=== PATIENT | female | born 1960 | race Caucasian/White ===

== ENCOUNTER → 2016-05-08 | Outpatient (CLI) | payer BC ==
[~2016-05-08] MED LIST: /RANI15TA PO; ALEV220C2 PO; AMOX500T PO; AMOXIL875 PO; ASPI81CH PO; ASPI81TA85 PO; ATOR1TAB19 PO; AUGM875T27 PO; AVELOX PO; AZEL0.1S; BACTRIMDS PO; CYCL10TA3 PO; DIVA125C5 PO; DOXYCYC100 PO; ESTRATEST PO; ETOD20CA PO; FLUT50SP; LYRI75CA PO; META800T82 PO; MULTCAP9 PO; PHENERGA25 PO; PREMAR1.25 PO; TRIA55SP; VAGIFEM VAGINALLY; VENTAER IN; VOLT1GEL2 TD; ZYRTEC10 PO; atrovastatin PO; augmentin PO
[2016-05-08 14:24] LABS: BASO % 0.7 % (0.0-1.0); EOS # 0.1 K/mm3 (0.0-0.50); EOS % 1.2 % (0.0-3.0); LYMPH # 3.1 K/mm3 (1.5-4.5); LYMPH % 45.1 % (24.0-44.0); MEAN CORPUSCULAR HEMOGLOBIN 29.3 pg (27.0-33.0); MEAN CORPUSCULAR HGB CONC 32.5 g/dl (32.0-36.5); MEAN CORPUSCULAR VOLUME 89.9 fl (80.0-96.0); MONO # 0.4 K/mm3 (0.0-0.8); MONO % 5.7 % (0.0-5.0); NEUTROPHILS # 3.1 K/mm3 (1.8-7.7); NEUTROPHILS % 45.6 % (36.0-66.0); RED CELL DISTRIBUTION WIDTH 12.7 % (11.5-14.5); WHITE BLOOD COUNT 6.7 K/mm3 (4.0-10.0)
[2016-05-08 14:51] LABS: IMMUNOGLOBULIN G 906 MG/DL (681-1648); IMMUNOGLOBULIN M 113 MG/DL (40-230)
[2016-05-08 15:16] LABS: IMMUNOGLOBULIN E < 3.6 IU/ML (<100)
[2016-05-12 00:06] LABS: ANTI TETANUS ANTIBODY 1.25 IU/mL (<0.10); STREP PNEUMO TYPE 12F <0.3 ug/mL (>1.3); STREP PNEUMO TYPE 18C 1.4 ug/mL (>1.3); STREP PNEUMO TYPE 19A 11.5 ug/mL (>1.3); STREP PNEUMO TYPE 19F 11.1 ug/mL (>1.3); STREP PNEUMO TYPE 23F 0.6 ug/mL (>1.3); STREP PNEUMO TYPE 6B 1.1 ug/mL (>1.3); STREP PNEUMO TYPE 7F 0.7 ug/mL (>1.3)
== END ==
LOC: M SMT 11:32
PROVIDERS: ATTEND Allergy & Immunology Allergy
DX: D84.9 Immunodeficiency, unspecified (principal)

== ENCOUNTER → 2016-06-15 | Outpatient (REF) | payer BC ==
[2016-06-15 12:18] LABS: ALBUMIN 3.7 GM/DL (3.2-5.2); ALBUMIN/GLOBULIN RATIO 1.23 (1.00-1.93); ALKALINE PHOSPHATASE 71 U/L (45-117); ALT/SGPT 53 U/L (12-78); ANION GAP 9 MEQ/L (8-16); AST/SGOT 24 U/L (15-37); BILIRUBIN,TOTAL 0.6 MG/DL (0.2-1.0); BLOOD UREA NITROGEN 14 MG/DL (7-18); CALCIUM LEVEL 8.9 MG/DL (8.5-10.1); CARBON DIOXIDE LEVEL 28 MEQ/L (21-32); CHLORIDE LEVEL 108 MEQ/L (98-107); CHOLESTEROL LEVEL 170 MG/DL (<200); GLOMERULAR FILTRATION RATE > 60.0 (>51); GLUCOSE, FASTING 88 MG/DL (70-105); POTASSIUM SERUM 4.1 MEQ/L (3.5-5.1); SODIUM LEVEL 145 MEQ/L (136-145); TOTAL PROTEIN 6.7 GM/DL (6.4-8.2); TRIGLYCERIDES LEVEL 138 MG/DL (<150)
== END ==
LOC: M SFHCCLAY 07:27
PROVIDERS: ATTEND Family Medicine
DX: E78.00 Pure hypercholesterolemia, unspecified (principal)

== ENCOUNTER → 2016-06-28 | Outpatient (REF) | payer BC | LOC: M SFHCCLAY 11:21 | PROVIDERS: ATTEND Family Medicine | DX: N39.0 Urinary tract infection, site not specified (principal) ==

== ENCOUNTER → 2016-07-31 | Outpatient (REF) | payer BC | LOC: M LABDRAWC 11:20 | PROVIDERS: ATTEND Allergy & Immunology Allergy | DX: J32.9 Chronic sinusitis, unspecified (principal) ==

== ENCOUNTER → 2016-09-25 | Outpatient (CLI) | payer BC ==
[~2016-09-25] MED LIST changes: +ASPI1TAB PO; +DEPA250T32 PO; +DOXY-278 PO; +HYDR200T3 PO; +MULT1TAB10 PO; +PRAV40TA2 PO; +PREG100CA PO; +PROBCAP4 PO
--- NOTE | 2016-09-25 14:28 | REP ---
Clinical: Chronic constipation. Technique: Two supine views of the abdomen and pelvis. Findings: Bowel gas pattern suggests moderate fecal stasis. No evidence for bowel obstruction. No organomegaly. Skeletal structures intact. Impression: Moderate fecal stasis.
== END ==
LOC: M CLY 13:30
PROVIDERS: ATTEND Family Medicine
DX: K59.09 Other constipation (principal)

== ENCOUNTER 2016-12-10 10:02 | Outpatient (CLI) | payer BC ==
[~2016-12-10] VITALS: Ht 154.9 cm; Wt 79.4 kg
[~2016-12-10 10:02] MED LIST changes: +NS 1,000 ML IV ONE
[2016-12-10] MEDS ORDERED: PROPOFOL 200 MG/20 ML VIAL As Ordered ONE ×2 (10:51→11:07)
[2016-12-10] MEDS ORDERED: LIDOCAINE 2% INJ 100 MG/5 ML SDV (FOR ANES.) As Ordered ONE (10:51)
--- NOTE | 2016-12-10 10:52 | ROOR ---
Patient Name: Caroline Gary Procedure Date: 12/10/2016 10:38 AM Date of : 1960 Age: 56 Room: [facility] Gender: Female Note Status: Finalized Procedure: Upper GI endoscopy Indications: Abdominal pain, Heartburn, Nausea Providers: Kemal Posey MD Referring MD: Toño Quintero MD Requesting Provider: Medicines: Monitored Anesthesia Care Complications: No immediate complications. Procedure: Pre-Anesthesia Assessment: - The heart rate, respiratory rate, oxygen saturations, blood pressure, adequacy of pulmonary ventilation, and response to care were monitored throughout the procedure. The Endoscope was introduced through the mouth, and advanced to the second part of duodenum. The upper GI endoscopy was accomplished without difficulty. The patient tolerated the procedure well. Findings: The Z-line was regular and was found 37 cm from the incisors. A small hiatal hernia was present. No other significant abnormalities were identified in a careful examination of the stomach. The exam of the duodenum was otherwise normal. Impression: - Z-line regular, 37 cm from the incisors. - Small hiatal hernia. - No specimens collected. - The examination was otherwise normal. Recommendation: - Patient has a contact number available for emergencies. The signs and symptoms of potential delayed complications were discussed with the patient. Return to normal activities tomorrow. Written discharge instructions were provided to the patient. - High fiber diet. - Discharge patient to home. - Continue present medications. - Return to referring physician. - The findings and recommendations were discussed with the patient's family. Kemal Posey MD Kemal Posey MD 12/10/2016 10:52:10 AM This report has been signed electronically. Number of Addenda: 0 Note Initiated On: 12/10/2016 10:38 AM Estimated Blood Loss: Estimated blood loss: none.
--- NOTE | 2016-12-10 11:09 | ROOR ---
Patient Name: Caroline Gary Procedure Date: 12/10/2016 10:39 AM Date of : 1960 Age: 56 Room: [facility] Gender: Female Note Status: Finalized Procedure: Total Colonoscopy to cecum + Biopsy Polypectomy Indications: Change in bowel habits Providers: Kemal Posey MD Referring MD: Toño Quintero MD Requesting Provider: Medicines: Monitored Anesthesia Care Complications: No immediate complications. Procedure: Pre-Anesthesia Assessment: - The heart rate, respiratory rate, oxygen saturations, blood pressure, adequacy of pulmonary ventilation, and response to care were monitored throughout the procedure. The Colonoscope was introduced through the anus and advanced to the cecum, identified by appendiceal orifice and ileocecal valve. The colonoscopy was performed without difficulty. The patient tolerated the procedure well. The quality of the bowel preparation was excellent. Findings: The perianal and digital rectal examinations were normal. Non-bleeding internal hemorrhoids were found during retroflexion. The hemorrhoids were small and Grade I (internal hemorrhoids that do not prolapse). Scattered small-mouthed diverticula were found in the recto-sigmoid colon, sigmoid colon and descending colon. Two sessile polyps were found in the mid transverse colon. The polyps were diminutive in size. These polyps were removed with a jumbo cold forceps. Resection and retrieval were complete. The exam was otherwise without abnormality on direct and retroflexion views. Impression: - Non-bleeding internal hemorrhoids. - Diverticulosis in the recto-sigmoid colon, in the sigmoid colon and in the descending colon. - Two diminutive polyps in the mid transverse colon, removed with a jumbo cold forceps. Resected and retrieved. - The examination was otherwise normal on direct and retroflexion views. - The exam was otherwise normal to the cecum. Recommendation: - Patient has a contact number available for emergencies. The signs and symptoms of potential delayed complications were discussed with the patient. Return to normal activities tomorrow. Written discharge instructions were provided to the patient. - High fiber diet. - Discharge patient to home. - Continue present medications. - Await pathology results. - Telephone GI clinic for pathology results in 1 week. Kemal Posey MD Kemal Posey MD 12/10/2016 11:09:41 AM This report has been signed electronically. Number of Addenda: 0 Note Initiated On: 12/10/2016 10:39 AM Estimated Blood Loss: Estimated blood loss: none.
[2016-12-10 11:30] VITALS: BP 129/88
== END 2016-12-10 11:45 | disposition home or self-care (01) ==
LOC: M OPP 10:02
PROVIDERS: ATTEND Internal Medicine Gastroenterology
DX: R19.4 Change in bowel habit (principal); D12.3 Benign neoplasm of transverse colon; K64.0 First degree hemorrhoids; K57.30 Diverticulosis of large intestine without perforation or abscess without bleeding; R10.9 Unspecified abdominal pain; K58.1 Irritable bowel syndrome with constipation; R12 Heartburn; R11.0 Nausea; K44.9 Diaphragmatic hernia without obstruction or gangrene; K21.9 Gastro-esophageal reflux disease without esophagitis; R00.8 Other abnormalities of heart beat; E78.5 Hyperlipidemia, unspecified; R19.7 Diarrhea, unspecified; R06.02 Shortness of breath; M79.7 Fibromyalgia; R94.5 Abnormal results of liver function studies; M32.9 Systemic lupus erythematosus, unspecified; G43.909 Migraine, unspecified, not intractable, without status migrainosus; J45.909 Unspecified asthma, uncomplicated; R06.83 Snoring; Z88.1 Allergy status to other antibiotic agents; Z91.040 Latex allergy status; Z79.82 Long term (current) use of aspirin; Z79.899 Other long term (current) drug therapy

== ENCOUNTER 2017-09-03 13:38 | Outpatient (RCR) | payer BC | END 2017-09-28 | LOC: M PT 13:38 → M OT 09-10 13:45 | DX: Z51.89 Encounter for other specified aftercare (principal); H51.11 Convergence insufficiency; R41.840 Attention and concentration deficit; R53.83 Other fatigue; M54.2 Cervicalgia | CPT/HCPCS: 97010 ==

== ENCOUNTER 2017-10-09 13:43 | Outpatient (RCR) | payer BC | END 2017-10-29 | LOC: M OT 13:43 | DX: W19.XXXA Unspecified fall, initial encounter (principal); S06.0X9D Concussion with loss of consciousness of unspecified duration, subsequent encounter (principal); S06.0X9A Concussion with loss of consciousness of unspecified duration, initial encounter; Z51.89 Encounter for other specified aftercare; Y92.89 Other specified places as the place of occurrence of the external cause; Y93.89 Activity, other specified | CPT/HCPCS: 97010 ==

== ENCOUNTER → 2018-03-19 | Outpatient (REF) | payer BC ==
[~2018-03-19] MED LIST changes: -DOXY-278 PO; +DOXY-350 PO; -NS 1,000 ML IV ONE
== END ==
LOC: M SFHCCLAY 11:03
PROVIDERS: ATTEND Nurse Practitioner Family
DX: Z12.4 Encounter for screening for malignant neoplasm of cervix (principal)

== ENCOUNTER → 2018-08-14 | Outpatient (REF) | payer BC ==
[~2018-08-14] MED LIST changes: -/RANI15TA PO; -ASPI1TAB PO; +ASPI81TA26 PO; +ETOD200C31 PO; -ETOD20CA PO; +RANI1TAB17 PO
[2018-08-14 16:57] LABS: HEMATOCRIT 42.2 % (36.0-47.0); HEMOGLOBIN 13.9 g/dl (12.0-15.5); MEAN CORPUSCULAR HEMOGLOBIN 29.5 pg (27.0-33.0); MEAN CORPUSCULAR HGB CONC 32.9 g/dl (32.0-36.5); MEAN CORPUSCULAR VOLUME 89.6 fl (80.0-96.0); PLATELET COUNT, AUTOMATED 178 10^3/uL (150-450); RED BLOOD COUNT 4.71 10^6/uL (4.00-5.40); WHITE BLOOD COUNT 8.2 10^3/uL (4.0-10.0)
[2018-08-14 18:33] LABS: ERYTHROCYTE SEDIMENTATION RATE 4 mm/hr (0-30)
[2018-08-16 14:30] LABS: Lyme Disease IgG/IgM Antibodie <0.91 ISR (0.00-0.90); Lyme Disease IgM Ab Quantitati <0.80 index (0.00-0.79)
== END ==
LOC: M SFHCCLAY 13:34
PROVIDERS: ATTEND Nurse Practitioner Family
DX: S80.862A Insect bite (nonvenomous), left lower leg, initial encounter (principal); W57.XXXA Bitten or stung by nonvenomous insect and other nonvenomous arthropods, initial encounter

== ENCOUNTER → 2019-01-19 | Outpatient (REF) | payer BC | LOC: M SFHCCLAY 14:40 | PROVIDERS: ATTEND Family Medicine | DX: R30.0 Dysuria (principal) ==

== ENCOUNTER → 2019-02-10 | Outpatient (CLI) | payer BC ==
--- NOTE | 2019-02-10 19:45 | REP ---
Chest x-ray: Two views. History: Chest tightness . Comparison study: Comparison chest x-ray March 14, 2016. . Findings: The lungs are well inflated and free of infiltrate. The pleural angles are sharp. The heart size is normal. Pulmonary vasculature is not increased. No significant bony abnormality is seen. Impression: Negative chest x-ray. Electronically Signed by Les Anand MD 02/10/2019 07:36 P
== END ==
LOC: M LRY 18:56
PROVIDERS: ATTEND Nurse Practitioner Family
DX: R07.89 Other chest pain (principal)

== ENCOUNTER → 2019-02-10 | Outpatient (REF) | payer BC | LOC: M SFHCLERA 19:24 | PROVIDERS: ATTEND Nurse Practitioner Family | DX: R53.81 Other malaise (principal) ==

== ENCOUNTER → 2019-04-29 | Outpatient (CLI) | payer BC ==
--- NOTE | 2019-05-06 10:18 | DEXA ---
AP SPINE L1 - L4 1.206 0.1 1.2 LT FEMUR TOTAL 0.982 -0.2 0.6 LT NECK 0.958 -0.6 0.6 RT FEMUR TOTAL 0.948 -0.5 0.4 RT NECK 0.955 -0.6 0.6 TOTAL BODY TOTAL OTHER COMMENTS: Normal bone densitometry of the spine and hips. FOLLOW-UP: Recommendation for the next bone density exam: 5 years. RAFAEL
== END ==
LOC: M WHC 14:25
PROVIDERS: ATTEND Nurse Practitioner Family
DX: Z13.820 Encounter for screening for osteoporosis (principal); Z79.52 Long term (current) use of systemic steroids

== ENCOUNTER → 2019-04-29 | Outpatient (CLI) | payer BC ==
--- NOTE | 2019-04-29 15:36 | REPMRS ---
Patient History The patient states she had a clinical breast exam in 2018. No known family history of cancer. 3D TOMOSYNTHESIS WAS PERFORMED. [facility] lifetime risk for breast cancer is 5.8%. Digital Woman Screen Mammo: April 29, 2019 - Exam #: [id number] Bilateral CC and MLO view(s) were taken. Technologist: Kassy Faust, Technologist Prior study comparison: April 28, 2013, digital woman screen mammo performed at [facility]. May 01, 2011, bilateral bilat screen digital mammo performed at [facility]. FINDINGS: There are scattered fibroglandular densities. There has been no change in the appearance of the mammogram from the prior studies. There is a mild amount of residual fibroglandular tissue which is fairly symmetric. There is no interval development of dominant mass, architectural distortion, or clustered microcalcification suggestive of malignancy. Assessment: BI-RADS/ACR category 1 mammogram. Negative Mammogram. Recommendation Routine screening mammogram in 1 year (for women over age 40). This mammogram was interpreted with the aid of an FDA-approved computer-aided dectection system. Electronically Signed By: Moi Lewis MD 04/29/19 [id number]
== END ==
LOC: M WHC 14:19
PROVIDERS: ATTEND Nurse Practitioner Family
DX: Z12.31 Encounter for screening mammogram for malignant neoplasm of breast (principal)

== ENCOUNTER → 2019-05-01 | Outpatient (CLI) | payer BC ==
--- NOTE | 2019-05-01 09:12 | REP ---
PA CHEST WITH LEFT RIBS: 05/01/2019. Comparison: Chest 02/10/2019, 05/04/2015. Clinical history: Left lateral rib pain after a fall 2 weeks ago. Findings: PA chest: The lung fermin are well inflated without pleural effusion, infiltrate, atelectasis or mass. No lateral pleural thickening apical scar or pneumothorax. The heart, mediastinal and hilar contours were normal. Visualized spine, ribs, clavicles and shoulders. On the PA chest were unremarkable. Left rib series: Four views are provided. Clavicle, scapula and proximal humerus without fracture or focal lesion. Posterior rib articulations were intact. Posterior and lateral ribs along with the anterolateral ribs all show no visible or displaced fracture, healing fracture, focal bone lesion, pleural thickening or effusion. No pneumothorax. Spine without acute finding. Impression: 1. Negative PA chest and left rib series. Electronically Signed by Mark mAaro MD 05/01/2019 09:03 A
== END ==
LOC: M CLY 08:11
PROVIDERS: ATTEND Family Medicine
DX: R07.81 Pleurodynia (principal)

== ENCOUNTER → 2019-05-22 | Outpatient (REF) | payer BC | LOC: M LAB REF 11:22 | PROVIDERS: ATTEND Nurse Practitioner Family | DX: R53.82 Chronic fatigue, unspecified (principal); R06.02 Shortness of breath ==

== ENCOUNTER → 2019-06-08 | Outpatient (CLI) | payer BC | LOC: M RAD 08:39 | PROVIDERS: ATTEND Nurse Practitioner Family | DX: R06.02 Shortness of breath (principal) ==

== ENCOUNTER → 2019-08-18 | Outpatient (CLI) | payer BC ==
--- NOTE | 2019-08-23 09:13 | SLEEPCENT ---
DATE OF STUDY: 08/18/2019 ORDERED BY: Lana Chun Nocturnal polysomnography was performed for evaluation of sleep physiology in this patient with a history of excessive somnolence and nonrestorative sleep. 7 hours and 44 minutes of data were reviewed. There were 430 minutes of sleep identified. Sleep latency was mildly prolonged at 14.5 minutes. Rapid eye movement (REM) latency was normal at 95 minutes. Sleep architecture was fair with some initial poor progression. There were 3 REM cycles noted. Overall sleep efficiency was 93.8%. The patient's electrocardiogram showed a sinus rhythm with an average heart rate of 68 beats per minute. Electroencephalogram (EEG) showed reasonably normal wave forms for wake and sleep stages. There were 65 respiratory events identified of 10 seconds in duration or greater for an apnea-hypopnea index of 9.1. The events were primarily obstructive, not exclusive to sleep stage, more frequent but not exclusive to the supine posture. Arousals from respiratory events were seen 3.8 times per hour and oxygen desaturations were seen into the 80s. There was minimal limb activity and remaining measures of sleep physiology were normal. IMPRESSION: Obstructive sleep apnea syndrome (G47.33). Apnea-hypopnea index 9.1. RECOMMENDATION: The patient should be encouraged to return to the sleep disorder center for pressure therapy. In the interim, alcohol and sedative avoidance should be practiced and caution exercised during the operation of motor vehicles.
== END ==
LOC: M SLEEP 20:00
PROVIDERS: ATTEND Nurse Practitioner Family
DX: R06.83 Snoring (principal)

== ENCOUNTER → 2019-10-21 | Outpatient (CLI) | payer BC ==
--- NOTE | 2019-12-11 13:55 | SLEEPCENT ---
DATE: 10/21/2019 ORDERED BY: Lana Chun Nocturnal polysomnography was performed for the saturation of pressure therapy in this patient with obstructive sleep apnea syndrome, apnea hypopnea index 9.1. For testing, a ResMed AirFit F30 full face mask of small size was used. 4 cm of water pressure were applied to the circuit and the lights were extinguished. Eight hours and 14 minutes of data were reviewed. There were 367 minutes of sleep identified. Sleep latency was prolonged at 33.5 minutes. REM latency was prolonged at 157 minutes. Sleep architecture was fairly good with three REM cycles. Overall sleep efficiency was 75.1%. The electrocardiogram showed a sinus rhythm with an average heart rate of 60 beats per minutes, rate range 42- 78. EEG showed reasonably normal waveforms for awake and sleep. Respiratory events were reasonably palliated early in the study, however late in the test hypopneic events emerged. Best sleep was seen on a CPAP pressure of 11, however this was after the patients last REM cycle. With some scattered limb activity, arousals from limb events were few. IMPRESSION: Obstructive sleep apnea syndrome (G47.33). RECOMMENDATION: Nightly use of pressure therapy 11 cm of water. MTDD
== END ==
LOC: M SLEEP 20:00
PROVIDERS: ATTEND Nurse Practitioner Family
DX: G47.33 Obstructive sleep apnea (adult) (pediatric) (principal)

== ENCOUNTER → 2020-01-15 | Outpatient (REF) | payer BC ==
[2020-01-15 11:56] LABS: APPEARANCE, URINE CLOUDY (CLEAR); BACTERIA, URINE AUTO NEGATIVE (NEGATIVE); BILIRUBIN, URINE AUTO NEGATIVE (NEGATIVE); BLOOD, URINE BLOOD NEGATIVE (NEGATIVE); COLOR, URINE YELLOW (YELLOW); GLUCOSE, URINE (UA) AUTO NEGATIVE (NEGATIVE); KETONE, URINE AUTO TRACE mg/dL (NEGATIVE); LEUKOCYTE ESTERASE, URINE AUTO NEGATIVE (NEGATIVE); NITRITE, URINE AUTO NEGATIVE (NEGATIVE); PROTEIN, URINE AUTO NEGATIVE (NEGATIVE); RBC, URINE AUTO 0 /HPF (0-3); SPECIFIC GRAVITY URINE AUTO 1.008 (1.002-1.035); SQUAMOUS EPITHELIAL CELL UR AU 0 /HPF (0-6); UROBILINOGEN, URINE AUTO 0.2 mg/dL (0.0-2.0); WBC, URINE AUTO 0 /HPF (0-3)
[2020-01-15 11:59] LABS: BASO # 0.1 10^3/uL (0.0-0.2); BASO % 1.1 % (0.0-1.0); EOS # 0.1 10^3/uL (0.0-0.5); EOS % 1.6 % (0.0-3.0); HEMATOCRIT 40.7 % (36.0-47.0); HEMOGLOBIN 13.2 g/dl (12.0-15.5); LYMPH # 3.6 10^3/uL (1.5-5.0); LYMPH % 57.2 % (24.0-44.0); MEAN CORPUSCULAR HEMOGLOBIN 29.6 pg (27.0-33.0); MEAN CORPUSCULAR HGB CONC 32.4 g/dl (32.0-36.5); MEAN CORPUSCULAR VOLUME 91.3 fl (80.0-96.0); MONO # 0.4 10^3/uL (0.0-0.8); MONO % 6.8 % (0.0-5.0); NEUTROPHILS # 2.1 10^3/uL (1.5-8.5); NEUTROPHILS % 33.1 % (36.0-66.0); PLATELET COUNT, AUTOMATED 204 10^3/uL (150-450); RED BLOOD COUNT 4.46 10^6/uL (4.00-5.40); WHITE BLOOD COUNT 6.3 10^3/uL (4.0-10.0)
[2020-01-15 12:19] LABS: ALT/SGPT 22 U/L (12-78); C REACTIVE PROTEIN QUANTITATIV < 0.30 MG/DL (0.00-0.30); COMPLEMENT C3 97 MG/DL (90-180); COMPLEMENT C4 22 MG/DL (10-40); GLOMERULAR FILTRATION RATE > 60.0 (>51)
[2020-01-15 12:25] LABS: CREATININE,RANDOM URINE 22.1 MG/DL; TOTAL PROTEIN,RANDOM URINE 7.4 MG/DL (0.0-12.0)
[2020-01-15 12:30] LABS: TOTAL 25(OH) VITAMIN D 19.2 NG/ML (30.0-100.0)
[2020-01-15 12:46] LABS: ERYTHROCYTE SEDIMENTATION RATE 4 mm/hr (0-30)
[2020-01-16 14:08] LABS: ANTINUCLEAR ANTIBODIES DIRECT Negative (Negative)
== END ==
LOC: M LABDRAWC 11:28
PROVIDERS: ATTEND Nurse Practitioner Family
DX: M32.9 Systemic lupus erythematosus, unspecified (principal); M25.50 Pain in unspecified joint; Z79.899 Other long term (current) drug therapy; Z79.52 Long term (current) use of systemic steroids; R76.8 Other specified abnormal immunological findings in serum; E55.9 Vitamin D deficiency, unspecified

== ENCOUNTER → 2020-09-26 | Outpatient (REF) | payer BC ==
[2020-09-26 12:23] LABS: ALT/SGPT 40 U/L (12-78)
[2020-09-26 12:32] LABS: HEPATITIS B SURFACE ANTIBODY NEGATIVE (POSITIVE)
[2020-09-26 12:42] LABS: HEPATITIS B SURFACE ANTIGEN NEGATIVE (NEGATIVE)
[2020-09-26 13:11] LABS: HEPATITIS C VIRUS ABY INDEX < 0.0 INDEX (<0.8)
== END ==
LOC: M LABDRAWC 11:12
PROVIDERS: ATTEND Nurse Practitioner Family
DX: R74.8 Abnormal levels of other serum enzymes (principal)

== ENCOUNTER → 2020-10-12 | Outpatient (REF) | payer BC | LOC: M SFHCCAPE 14:34 | PROVIDERS: ATTEND Physician Assistant | DX: R09.81 Nasal congestion (principal) ==

== ENCOUNTER → 2021-03-09 | Outpatient (REF) | payer BC | LOC: M SFHCCLAY 09:28 | PROVIDERS: ATTEND Physician Assistant | DX: R09.81 Nasal congestion (principal) ==

== ENCOUNTER → 2021-06-02 | Outpatient (CLI) | payer BC | LOC: M CLY 08:44 | PROVIDERS: ATTEND Family Medicine | DX: Z78.0 Asymptomatic menopausal state (principal); M23.92 Unspecified internal derangement of left knee; M54.42 Lumbago with sciatica, left side ==

== ENCOUNTER → 2021-06-02 | Outpatient (CLI) | payer BC | LOC: M CLY 08:40 | PROVIDERS: ATTEND Family Medicine | DX: Z78.0 Asymptomatic menopausal state (principal); M23.92 Unspecified internal derangement of left knee; M54.42 Lumbago with sciatica, left side ==

== ENCOUNTER → 2021-11-16 | Outpatient (REF) | payer BC | LOC: M SFHCCLAY 11:17 | PROVIDERS: ATTEND Family Medicine | DX: J98.8 Other specified respiratory disorders (principal) ==

== ENCOUNTER → 2022-01-17 | Outpatient (REF) | payer BC ==
[2022-01-17 19:10] LABS: BASO # 0.1 10^3/uL (0.0-0.2); BASO % 0.7 % (0.0-1.0); EOS % 0.3 % (0.0-3.0); HEMOGLOBIN 13.2 g/dl (12.0-15.5); LYMPH # 2.4 10^3/uL (1.5-5.0); LYMPH % 20.5 % (24.0-44.0); MEAN CORPUSCULAR HGB CONC 31.4 g/dl (32.0-36.5); MEAN CORPUSCULAR VOLUME 92.3 fl (80.0-96.0); MONO # 0.5 10^3/uL (0.0-0.8); MONO % 4.4 % (2.0-8.0); NEUTROPHILS # 8.7 10^3/uL (1.5-8.5); NEUTROPHILS % 73.3 % (36.0-66.0); PLATELET COUNT, AUTOMATED 227 10^3/uL (150-450); RED BLOOD COUNT 4.55 10^6/uL (4.00-5.40); WHITE BLOOD COUNT 11.9 10^3/uL (4.0-10.0)
[2022-01-17 19:22] LABS: ALT/SGPT 24 U/L (12-78); COMPLEMENT C3 107 MG/DL (90-180); COMPLEMENT C4 25 MG/DL (10-40); CREATININE FOR GFR 0.61 MG/DL (0.55-1.30); GLOMERULAR FILTRATION RATE > 60.0 (>45)
[2022-01-17 19:32] LABS: TOTAL PROTEIN,RANDOM URINE 7.5 MG/DL (0.0-12.0)
[2022-01-17 19:42] LABS: TOTAL 25(OH) VITAMIN D 79.3 NG/ML (30.0-100.0)
[2022-01-17 19:53] LABS: ERYTHROCYTE SEDIMENTATION RATE 4 mm/hr (0-30)
[2022-01-17 19:57] LABS: APPEARANCE, URINE MANUAL CLEAR (CLEAR); COLOR, URINE MANUAL YELLOW (YELLOW); SPECIFIC GRAVITY,URINE MANUAL 1.015 (1.002-1.035)
[2022-01-17 19:58] LABS: BILIRUBIN, URINE MANUAL NEGATIVE (NEGATIVE); BLOOD URINE MANUAL NEGATIVE (NEGATIVE); GLUCOSE, URINE (UA) MANUAL NEGATIVE (NEGATIVE); KETONE, URINE MANUAL NEGATIVE (NEGATIVE); LEUKOCYTE ESTERASE, URINE MAN NEGATIVE (NEGATIVE); NITRITE, URINE MANUAL NEGATIVE (NEGATIVE); PROTEIN, URINE MANUAL NEGATIVE (NEGATIVE); UROBILINOGEN, URINE MANUAL NORMAL (NORMAL)
== END ==
LOC: M LABDRAWC 17:27
PROVIDERS: ATTEND Nurse Practitioner Family
DX: M32.9 Systemic lupus erythematosus, unspecified (principal); R76.8 Other specified abnormal immunological findings in serum; Z79.899 Other long term (current) drug therapy

== ENCOUNTER → 2022-04-17 | Outpatient (REF) | payer BC ==
[~2022-04-17] MED LIST changes: -DOXY-350 PO; +DOXY-444 PO
[2022-04-17 11:50] LABS: BASO # 0.1 10^3/uL (0.0-0.2); BASO % 1.3 % (0.0-1.0); EOS % 0.5 % (0.0-3.0); LYMPH # 1.6 10^3/uL (1.5-5.0); MEAN CORPUSCULAR HEMOGLOBIN 29.2 pg (27.0-33.0); MEAN CORPUSCULAR HGB CONC 31.8 g/dl (32.0-36.5); MEAN CORPUSCULAR VOLUME 91.7 fl (80.0-96.0); MONO # 0.4 10^3/uL (0.0-0.8); MONO % 5.1 % (2.0-8.0); NEUTROPHILS # 5.3 10^3/uL (1.5-8.5); NEUTROPHILS % 70.6 % (36.0-66.0); PLATELET COUNT, AUTOMATED 299 10^3/uL (150-450); WHITE BLOOD COUNT 7.5 10^3/uL (4.0-10.0)
[2022-04-17 12:20] LABS: ALKALINE PHOSPHATASE 44 U/L (46-116); ALT/SGPT 24 U/L (7.0-40); AST/SGOT 16 U/L (<34); BILIRUBIN,TOTAL 0.5 MG/DL (0.3-1.2); BLOOD UREA NITROGEN 21 MG/DL (9-23); CALCIUM LEVEL 9.3 MG/DL (8.3-10.6); CARBON DIOXIDE LEVEL 29 MMOL/L (20-31); CHLORIDE LEVEL 104 MMOL/L (98-107); CREATININE FOR GFR 0.68 MG/DL (0.55-1.30); GLOMERULAR FILTRATION RATE > 60.0 (>45); GLUCOSE, FASTING 85 MG/DL (74-106); POTASSIUM SERUM 4.5 MMOL/L (3.5-5.1); SODIUM LEVEL 140 MMOL/L (136-145); TOTAL PROTEIN 6.5 G/DL (5.7-8.2)
[2022-04-17 12:37] LABS: APPEARANCE, URINE MANUAL CLEAR (CLEAR); COLOR, URINE MANUAL LT YELLOW (YELLOW)
[2022-04-17 12:38] LABS: BILIRUBIN, URINE MANUAL NEGATIVE (NEGATIVE); BLOOD URINE MANUAL NEGATIVE (NEGATIVE); GLUCOSE, URINE (UA) MANUAL NEGATIVE (NEGATIVE); KETONE, URINE MANUAL NEGATIVE (NEGATIVE); LEUKOCYTE ESTERASE, URINE MAN NEGATIVE (NEGATIVE); NITRITE, URINE MANUAL NEGATIVE (NEGATIVE); PROTEIN, URINE MANUAL NEGATIVE (NEGATIVE); UROBILINOGEN, URINE MANUAL NORMAL (NORMAL)
[2022-04-17 12:57] LABS: HEMOGLOBIN A1c 4.9 % (4.0-6.0)
== END ==
LOC: M SFHCCLAY 07:26
PROVIDERS: ATTEND Family Medicine
DX: R80.9 Proteinuria, unspecified (principal)

== ENCOUNTER → 2022-04-23 | Outpatient (REF) | payer BC ==
[2022-04-23 12:25] LABS: CREATININE, SERUM 0.8 MG/DL (0.55-1.02)
[2022-04-23 12:46] LABS: TOTAL VOLUME, URINE 2650 ML
[2022-04-23 13:15] LABS: CREATININE CLEARANCE, URINE 96.9 ML/MIN (75-115); CREATININE, URINE 42.13 MG/DL; URINE TOTAL PROTEIN < 6.0 MG/DL (0-14)
== END ==
LOC: M SFHCCLAY 11:25
PROVIDERS: ATTEND Family Medicine
DX: R80.9 Proteinuria, unspecified (principal)

== ENCOUNTER 2022-07-23 08:51 | Day surgery (SDC) | payer BC ==
[~2022-07-23] VITALS: Ht 157.5 cm; Wt 82.3 kg
[~2022-07-23 08:51] MED LIST changes: +BENL200I SQ; +ERGO500029 PO; +NABU-71 PO; +NS 1,000 ML IV ONE; +PRED10TA2 PO; +RA M500C PO
[2022-07-23] MEDS ORDERED: propofoL 500 MG/50 ML VIAL As Ordered ONE (10:01)
[2022-07-23] MEDS ORDERED: LIDOCAINE 2% 100MG/5ML SDV (FOR ANES.) As Ordered ONE (10:01)
[2022-07-23] MEDS ORDERED: fentaNYL 100 MCG/2 ML INJECTION As Ordered ONE (10:01)
[2022-07-23 10:48] VITALS: BP 108/59
== END 2022-07-23 11:21 | disposition home or self-care (01) ==
LOC: M OPP 08:51
PROVIDERS: ATTEND Internal Medicine Gastroenterology
DX: Z12.11 Encounter for screening for malignant neoplasm of colon (principal); Z86.010 Personal history of colon polyps; K63.5 Polyp of colon; K64.0 First degree hemorrhoids; K57.30 Diverticulosis of large intestine without perforation or abscess without bleeding; K22.89 Other specified disease of esophagus; K31.A11 Gastric intestinal metaplasia without dysplasia, involving the antrum; K20.90 Esophagitis, unspecified without bleeding; G47.33 Obstructive sleep apnea (adult) (pediatric); Z99.89 Dependence on other enabling machines and devices; Z79.1 Long term (current) use of non-steroidal anti-inflammatories (NSAID); Z79.52 Long term (current) use of systemic steroids; Z79.82 Long term (current) use of aspirin; Z79.899 Other long term (current) drug therapy; Z88.1 Allergy status to other antibiotic agents; Z91.040 Latex allergy status
CPT/HCPCS: 43239; 45380; 88305; J3010

== ENCOUNTER → 2022-11-09 | Outpatient (CLI) | payer BC ==
[~2022-11-09] MED LIST changes: -HYDR200T3 PO; +HYDR200T46 PO; -NS 1,000 ML IV ONE
== END ==
LOC: M CLY 15:25
PROVIDERS: ATTEND Physician Assistant
DX: M79.671 Pain in right foot (principal)

== ENCOUNTER → 2023-04-04 | Outpatient (REF) | payer BC ==
[2023-04-04 22:06] LABS: RSV AMPLIFICATION NEGATIVE (NEGATIVE)
== END ==
LOC: M SFHCCLAY 17:09
PROVIDERS: ATTEND Physician Assistant
DX: B34.9 Viral infection, unspecified (principal)

== ENCOUNTER → 2024-05-07 | Outpatient (REF) | payer BC ==
[~2024-05-07] MED LIST changes: +DOXY-440 PO; -DOXY-444 PO
== END ==
LOC: M SFHCWOUN 13:13
PROVIDERS: ATTEND Surgery
DX: S01.101A Unspecified open wound of right eyelid and periocular area, initial encounter (principal); W18.30XA Fall on same level, unspecified, initial encounter; Y92.009 Unspecified place in unspecified non-institutional (private) residence as the place of occurrence of the external cause

== ENCOUNTER → 2024-06-18 | Outpatient (REF) | payer BC ==
[~2024-06-18] MED LIST changes: +CLON0.5T2 PO; +FOLI1TAB11 PO; +MYCO1TAB2 PO; +PROG1CAP8 PO
[2024-06-18 17:56] LABS: BASO # 0.1 10^3/uL (0.0-0.2); BASO % 0.8 % (0.0-1.0); EOS % 0.3 % (0.0-3.0); HEMATOCRIT 44.3 % (36.0-47.0); HEMOGLOBIN 15.1 g/dl (12.0-15.5); LYMPH # 1.8 10^3/uL (1.5-5.0); LYMPH % 15.6 % (24.0-44.0); MEAN CORPUSCULAR HEMOGLOBIN 31.2 pg (27.0-33.0); MEAN CORPUSCULAR HGB CONC 34.1 g/dl (32.0-36.5); MEAN CORPUSCULAR VOLUME 91.5 fl (80.0-96.0); MONO # 0.6 10^3/uL (0.0-0.8); NEUTROPHILS % 77.8 % (36.0-66.0); PLATELET COUNT, AUTOMATED 287 10^3/uL (150-450); RED BLOOD COUNT 4.84 10^6/uL (4.00-5.40); WHITE BLOOD COUNT 11.5 10^3/uL (4.0-10.0)
[2024-06-18 18:28] LABS: ALBUMIN 3.9 G/DL (3.2-5.2); ALKALINE PHOSPHATASE 55 U/L (35-104); ALT/SGPT 33 U/L (7.0-40); AST/SGOT 18 U/L (<34); BILIRUBIN,TOTAL 0.5 MG/DL (0.3-1.2); BLOOD UREA NITROGEN 15 MG/DL (9-23); CALCIUM LEVEL 9.4 MG/DL (8.3-10.6); CARBON DIOXIDE LEVEL 29 MMOL/L (20-31); CHLORIDE LEVEL 102 MMOL/L (98-107); CREATININE FOR GFR 0.77 MG/DL (0.55-1.30); GLOMERULAR FILTRATION RATE > 60.0 (>45); GLUCOSE, FASTING 85 MG/DL (74-106); POTASSIUM SERUM 4.6 MMOL/L (3.5-5.1); SODIUM LEVEL 145 MMOL/L (136-145); TOTAL PROTEIN 6.7 G/DL (5.7-8.2)
== END ==
LOC: M SFHCCLAY 13:58
PROVIDERS: ATTEND Nurse Practitioner Family
DX: Z01.818 Encounter for other preprocedural examination (principal)

== ENCOUNTER → 2024-06-18 | Outpatient (CLI) | payer BC | LOC: M CLY 14:12 | PROVIDERS: ATTEND Nurse Practitioner Family | DX: Z01.818 Encounter for other preprocedural examination (principal) ==

== ENCOUNTER 2024-06-23 06:01 | Day surgery (SDC) | payer BC ==
[~2024-06-23] VITALS: Ht 157.5 cm; Wt 87.5 kg
[~2024-06-23 06:01] MED LIST changes: +UNRESOLVED CLARIFICATION ENTRY XX SCH
[2024-06-23] MEDS ORDERED: LR 1,000 ML IV SCH ×2 (06:20→10:10)
[2024-06-23] MEDS: LIDOCAINE W/EPINEPHRINE 1% 20ML VIAL As Ordered ONE (07:10)
[2024-06-23] MEDS ORDERED: ONDANSETRON 4MG 2ML VIAL As Ordered ONE (07:20)
[2024-06-23] MEDS ORDERED: fentaNYL 100 MCG/2 ML INJECTION As Ordered ONE (07:20)
[2024-06-23] MEDS ORDERED: MIDAZOLAM INJ 2MG/2ML VIAL As Ordered ONE (07:20)
[2024-06-23] MEDS ORDERED: propofoL 200 MG/20 ML VIAL As Ordered ONE (07:20)
[2024-06-23] MEDS ORDERED: LIDOCAINE 2% 100MG/5ML SDV (FOR ANES.) As Ordered ONE (07:20)
[2024-06-23] MEDS ORDERED: dexmedeTOMIDine (4MCG/ML)200MCG/50ML BTL (PRECEDEX) As Ordered ONE (07:21)
[2024-06-23] MEDS: ceFAZolin SOD 2 GM IV ONCE IV ONE (07:30)
[2024-06-23] MEDS ORDERED: HYDROCORTISONE 100MG/2ML VIAL As Ordered ONE (07:40)
[2024-06-23] MEDS ORDERED: LACRILUBE (AKWA TEARS) OPHTH OINT 3.5GM As Ordered ONE (07:49)
[2024-06-23] MEDS ORDERED: PHENYLephrine 500MCG 5ML (100MCG/ML) SYRINGE As Ordered ONE (07:56)
[2024-06-23] MEDS: ceFAZolin SODIUM 2 GM VIAL As Ordered ONE (07:57)
[2024-06-23] MEDS ORDERED: ACETAMINOPHEN 1000MG/100ML IV BAG As Ordered ONE (08:03)
[2024-06-23] MEDS ORDERED: ePHEDrine SULFATE 25 MG/5 ML(5MG/ML) SYRINGE As Ordered ONE (08:19)
[2024-06-23] MEDS ORDERED: SEVOFLURANE INHAL SOLN 250 ML BTL As Ordered ONE (09:27)
[2024-06-23] MEDS: LIDOCAINE 2% W/EPINEPHRINE 20ML VIAL **PRES FREE As Ordered ONE (10:00)
[2024-06-23] MEDS: BACITRACIN OINTMENT 30GM TUBE As Ordered ONE (10:05)
[2024-06-23] MEDS ORDERED: fentaNYL 100 MCG/2 ML INJECTION IV PRN (10:10)
[2024-06-23] MEDS ORDERED: ONDANSETRON 4MG 2ML VIAL IV PRN (10:10)
[2024-06-23] MEDS ORDERED: HYDROMORPHONE HCL 0.5 MG/ 0.5 ML SYRINGE IV PRN (10:10)
[2024-06-23] MEDS: oxyCODONE 5MG TAB PO PRN (11:28)
[2024-06-23 12:45] VITALS: BP 125/60; TEMP 97.7; O2SAT 96
== END 2024-06-23 12:50 | disposition home or self-care (01) ==
LOC: M SDC 06:01
PROVIDERS: ATTEND Plastic Surgery Surgery of the Hand
DX: C44.319 Basal cell carcinoma of skin of other parts of face (principal); M32.9 Systemic lupus erythematosus, unspecified; G47.30 Sleep apnea, unspecified; G43.909 Migraine, unspecified, not intractable, without status migrainosus; K58.9 Irritable bowel syndrome, unspecified; M89.8X7 Other specified disorders of bone, ankle and foot; M79.7 Fibromyalgia; Z79.899 Other long term (current) drug therapy; Z79.82 Long term (current) use of aspirin; Z90.710 Acquired absence of both cervix and uterus; Z90.49 Acquired absence of other specified parts of digestive tract; Z91.040 Latex allergy status; Z88.1 Allergy status to other antibiotic agents
CPT/HCPCS: 14040; 88305; J0131; J0690; J1100; J1720; J2250; J2371; J2405; J3010

== ENCOUNTER → 2024-10-09 | Outpatient (REF) | payer BC ==
[~2024-10-09] MED LIST changes: -DEPA250T32 PO; +DIVA-65 PO; -PRAV40TA2 PO; +PRAV40TA85 PO; +PREG-35 PO; -PREG100CA PO; -UNRESOLVED CLARIFICATION ENTRY XX SCH
[2024-10-09 18:26] LABS: ALT/SGPT 38.0 U/L (7.0-40); AST/SGOT 29.0 U/L (<34)
== END ==
LOC: M LABDRAWC 17:16
PROVIDERS: ATTEND Psychiatry & Neurology Neurology
DX: R51.9 Headache, unspecified (principal)